=== PATIENT | female | born 1950 | race Caucasian/White ===

== ENCOUNTER 2019-08-15 15:21 | Outpatient (CLI) | payer MEDICARE, MEDICAID, SELFPAY ==
--- NOTE | 2019-08-15 15:32 | XR_ITS ---
WS: [id number] LATERAL LUMBAR SPINE: 3 view. Lateral radiographs are performed in upright neutral, flexion and extension to the patient's toleranc e. HISTORY: LOW BACK PAIN, COMPARISON: None available. Posterior lumbar alignment is normal. Advanced degenerative changes involving the discs. With flexion and extension there is no instability. No fractures. Prior cholecystectomy. XR/XR lumbar spine f/e only [id number] IMPRESSION: 1. No lumbar spine instability. 2. 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
== END 2019-08-15 15:22 | disposition home or self-care (01) ==
LOC: RADWPI 15:28
PROVIDERS: Visit Provider Nurse Practitioner
DX: M54.5 Low back pain (principal); M51.36 Other intervertebral disc degeneration, lumbar region
CPT/HCPCS: 72120